=== PATIENT | male | born 1940 | race Caucasian/White ===

== ENCOUNTER 2018-10-31 01:08 | Inpatient (IN) | payer OTHER, MEDICARE ==
[~2018-10-31] VITALS: Ht 182.9 cm; Wt 71.4 kg
[~2018-10-31 01:08] MED LIST: APIX5TAB PO; ASPI-465; CARB1TAB34 PO; DONE10TA7 PO; FLEC100T PO; FLUD0.1T10 PO; LYRI25 PO
[2018-10-31 01:16] VITALS: Ht 182.9 cm; Wt 71.4 kg
[2018-10-31] MEDS ORDERED: SOD CHLORIDE 0.9% 1,000 ML IV STA (01:18)
[2018-10-31] MEDS ORDERED: ACETAMINOPHEN 325 MG TAB PO PRN ×2 (04:00→05:30)
[2018-10-31] MEDS ORDERED: ONDANSETRON 4 MG INJ IV PRN (04:00)
[2018-10-31 05:00] VITALS: BP 166/74; PULSE 72; RESP 18
[2018-10-31 07:46] VITALS: BP 171/79; PULSE 64; RESP 18
[2018-10-31] MEDS ORDERED: APIXABAN 5 MG TABLET PO SCH (09:00)
[2018-10-31] MEDS ORDERED: ENOXAPARIN 40 MG/0.4 ML SYG SC SCH (09:00)
[2018-10-31] MEDS: PREGABALIN 25 MG CAP PO SCH ×3 (09:00→21:01)
[2018-10-31] MEDS: DONEPEZIL 10 MG TAB PO SCH ×2 (09:26→21:01)
[2018-10-31] MEDS: FLUDROCORTISONE 0.1 MG TAB PO SCH (09:27)
[2018-10-31] MEDS: CARBIDOPA/LEVODOPA (25/100) TAB PO SCH ×4 (09:27→21:02)
[2018-10-31] MEDS: FLECAINIDE 100 MG TAB PO SCH ×2 (09:28→21:02)
[2018-10-31 13:19] VITALS: BP 140/70; PULSE 66; RESP 18
[2018-10-31] MEDS: HYDROCODONE/APAP (5/325) TAB PO PRN (19:41)
[2018-10-31 20:17] VITALS: BP 180/74; PULSE 62; RESP 20
[2018-10-31] MEDS: DEXTROSE 5%-0.45% NACL 1,000 ML IV SCH (21:01)
[2018-10-31] MEDS: APIXABAN 5 MG TABLET PO SCH (21:02)
[2018-11-01 02:09] VITALS: BP 153/67; PULSE 58; RESP 21
[2018-11-01 07:39] VITALS: BP 183/79; PULSE 50; RESP 17
[2018-11-01] MEDS: PREGABALIN 25 MG CAP PO SCH ×3 (07:51→21:08)
[2018-11-01] MEDS: CARBIDOPA/LEVODOPA (25/100) TAB PO SCH ×4 (07:51→21:09)
[2018-11-01] MEDS: HYDROCODONE/APAP (5/325) TAB PO PRN (07:51)
[2018-11-01] MEDS: APIXABAN 5 MG TABLET PO SCH ×2 (07:51→21:09)
[2018-11-01] MEDS: DONEPEZIL 10 MG TAB PO SCH ×2 (07:51→21:09)
[2018-11-01] MEDS: FLUDROCORTISONE 0.1 MG TAB PO SCH (07:52)
[2018-11-01 10:30] VITALS: BP 160/70; PULSE 55; RESP 18
[2018-11-01 13:00] VITALS: PULSE 57
[2018-11-01] MEDS: FLECAINIDE 100 MG TAB PO SCH ×2 (13:29→21:09)
[2018-11-01 15:08] VITALS: BP 143/63; PULSE 70; RESP 20
[2018-11-01] MEDS: DEXTROSE 5%-0.45% NACL 1,000 ML IV SCH (18:01)
[2018-11-01 20:19] VITALS: BP 143/64; PULSE 60; RESP 18
[2018-11-01] MEDS: NIFEdipine (XL) 30 MG TAB PO SCH (21:08)
[2018-11-02 02:03] VITALS: BP 115/54; PULSE 61; RESP 18
[2018-11-02 07:34] VITALS: BP 118/74; PULSE 66; RESP 19
[2018-11-02] MEDS: PREGABALIN 25 MG CAP PO SCH ×3 (09:15→22:40)
[2018-11-02] MEDS: NIFEdipine (XL) 30 MG TAB PO SCH ×2 (09:16→22:41)
[2018-11-02] MEDS: DONEPEZIL 10 MG TAB PO SCH ×2 (09:16→22:40)
[2018-11-02] MEDS: FLECAINIDE 100 MG TAB PO SCH ×2 (09:16→22:41)
[2018-11-02] MEDS: APIXABAN 5 MG TABLET PO SCH ×2 (09:16→22:40)
[2018-11-02] MEDS: CARBIDOPA/LEVODOPA (25/100) TAB PO SCH ×4 (09:16→22:41)
[2018-11-02] MEDS: FLUDROCORTISONE 0.1 MG TAB PO SCH (09:16)
[2018-11-02] MEDS: DEXTROSE 5%-0.45% NACL 1,000 ML IV SCH (13:35)
[2018-11-02 14:47] VITALS: BP 146/66; PULSE 62; RESP 19
[2018-11-02 20:00] VITALS: BP 156/69; PULSE 65; RESP 18
[2018-11-03 02:00] VITALS: BP 164/74; PULSE 70; RESP 16
[2018-11-03] MEDS: DEXTROSE 5%-0.45% NACL 1,000 ML IV SCH ×2 (06:30→10:17)
[2018-11-03 07:48] VITALS: BP 143/66; PULSE 69; RESP 17
[2018-11-03] MEDS: FLUDROCORTISONE 0.1 MG TAB PO SCH (09:08)
[2018-11-03] MEDS: CARBIDOPA/LEVODOPA (25/100) TAB PO SCH ×4 (09:08→21:17)
[2018-11-03] MEDS: NIFEdipine (XL) 30 MG TAB PO SCH ×2 (09:08→21:17)
[2018-11-03] MEDS: DONEPEZIL 10 MG TAB PO SCH ×2 (09:08→21:16)
[2018-11-03] MEDS: PREGABALIN 25 MG CAP PO SCH ×3 (09:08→21:16)
[2018-11-03] MEDS: FLECAINIDE 100 MG TAB PO SCH ×2 (09:08→21:17)
[2018-11-03] MEDS: APIXABAN 5 MG TABLET PO SCH ×2 (09:08→21:16)
[2018-11-03] MEDS: CEFTRIAXONE 1 GM/50 ML (PMX) 50 ML IVPB SCH (10:17)
[2018-11-03 15:39] VITALS: BP 129/63; PULSE 81; RESP 17
[2018-11-03 19:58] VITALS: BP 129/60; PULSE 71; RESP 14
[2018-11-04 02:00] VITALS: BP 140/65; PULSE 70; RESP 16
[2018-11-04] MEDS: DEXTROSE 5%-0.45% NACL 1,000 ML IV SCH (07:17)
[2018-11-04 07:45] VITALS: BP 171/77; PULSE 66; RESP 16
[2018-11-04] MEDS: CARBIDOPA/LEVODOPA (25/100) TAB PO SCH ×4 (08:39→21:59)
[2018-11-04] MEDS: FLUDROCORTISONE 0.1 MG TAB PO SCH (08:39)
[2018-11-04] MEDS: DONEPEZIL 10 MG TAB PO SCH ×2 (08:39→21:59)
[2018-11-04] MEDS: PREGABALIN 25 MG CAP PO SCH ×3 (08:40→21:59)
[2018-11-04] MEDS: APIXABAN 5 MG TABLET PO SCH ×2 (08:40→21:59)
[2018-11-04] MEDS: FLECAINIDE 100 MG TAB PO SCH ×2 (08:40→21:59)
[2018-11-04] MEDS: NIFEdipine (XL) 30 MG TAB PO SCH ×2 (08:40→21:59)
[2018-11-04] MEDS: CEFTRIAXONE 1 GM/50 ML (PMX) 50 ML IVPB SCH (11:30)
[2018-11-04 13:47] VITALS: BP 143/63; PULSE 71; RESP 16
[2018-11-04 19:20] VITALS: PULSE 72; RESP 16
[2018-11-04 20:05] VITALS: BP 161/88; RESP 17
[2018-11-04] MEDS: HYDROCODONE/APAP (5/325) TAB PO PRN (21:59)
[2018-11-05 01:29] VITALS: PULSE 63; RESP 17
[2018-11-05 01:41] VITALS: BP 158/78
[2018-11-05] MEDS: DEXTROSE 5%-0.45% NACL 1,000 ML IV SCH (05:09)
[2018-11-05 07:37] VITALS: BP 167/73; PULSE 71; RESP 18
[2018-11-05] MEDS: PREGABALIN 25 MG CAP PO SCH ×3 (09:38→21:45)
[2018-11-05] MEDS: FLUDROCORTISONE 0.1 MG TAB PO SCH (09:39)
[2018-11-05] MEDS: CARBIDOPA/LEVODOPA (25/100) TAB PO SCH ×4 (09:39→21:46)
[2018-11-05] MEDS: APIXABAN 5 MG TABLET PO SCH ×2 (09:39→21:45)
[2018-11-05] MEDS: DONEPEZIL 10 MG TAB PO SCH ×2 (09:39→21:46)
[2018-11-05] MEDS: FLECAINIDE 100 MG TAB PO SCH ×2 (09:39→21:45)
[2018-11-05] MEDS: CEFTRIAXONE 1 GM/50 ML (PMX) 50 ML IVPB SCH (09:41)
[2018-11-05] MEDS: NIFEdipine (XL) 30 MG TAB PO SCH ×2 (09:44→21:46)
[2018-11-05] MEDS ORDERED: POTASSIUM CHLORIDE 20 MEQ POWDER FOR ORAL SOLN PO ONE (13:30)
[2018-11-05] MEDS ORDERED: POTASSIUM CHLORIDE 20 MEQ POWDER FOR ORAL SOLN GTB ONE (13:30)
[2018-11-05 13:44] VITALS: BP 122/72; PULSE 79; RESP 20
[2018-11-05 21:07] VITALS: BP 173/75; PULSE 70; RESP 17
[2018-11-05] MEDS: METOPROLOL 25 MG TAB PO SCH (21:46)
[2018-11-06 02:07] VITALS: BP 139/74; PULSE 62; RESP 17
[2018-11-06 07:19] VITALS: BP 186/86; PULSE 58; RESP 18
[2018-11-06] MEDS: PREGABALIN 25 MG CAP PO SCH ×2 (08:27→13:17)
[2018-11-06] MEDS: FLUDROCORTISONE 0.1 MG TAB PO SCH (08:28)
[2018-11-06] MEDS: APIXABAN 5 MG TABLET PO SCH (08:28)
[2018-11-06] MEDS: METOPROLOL 25 MG TAB PO SCH (08:28)
[2018-11-06] MEDS: NIFEdipine (XL) 30 MG TAB PO SCH (08:29)
[2018-11-06] MEDS: CARBIDOPA/LEVODOPA (25/100) TAB PO SCH ×2 (08:29→13:17)
[2018-11-06] MEDS: DONEPEZIL 10 MG TAB PO SCH (08:29)
[2018-11-06] MEDS: FLECAINIDE 100 MG TAB PO SCH (08:33)
[2018-11-06] MEDS: CEFTRIAXONE 1 GM/50 ML (PMX) 50 ML IVPB SCH (10:49)
[2018-11-06 12:53] VITALS: BP 118/56; PULSE 61; RESP 18
[2018-11-06] MEDS ORDERED: NIFEdipine (XL) 60 MG TAB PO SCH (21:00)
[2018-11-07] MEDS ORDERED: NIFEdipine (XL) 30 MG TAB PO SCH (09:00)
== END 2018-11-06 13:45 | DRG 56 ==
LOC: E/R 01:08 → 2NE 03:34 → UNDOADMOB 03:34 → OBSVTOIN 11-01 09:22 → 2NE 11-01 19:47
PROVIDERS: ADMIT Internal Medicine; ATTEND Internal Medicine
DX: G31.83 Neurocognitive disorder with Lewy bodies (principal); L89.323 Pressure ulcer of left buttock, stage 3; D68.69 Other thrombophilia; I48.0 Paroxysmal atrial fibrillation; I45.10 Unspecified right bundle-branch block; F02.80 Dementia in other diseases classified elsewhere, unspecified severity, without behavioral disturbance, psychotic disturbance, mood disturbance, and anxiety; R00.1 Bradycardia, unspecified; I44.0 Atrioventricular block, first degree; I10 Essential (primary) hypertension; R53.1 Weakness; G89.29 Other chronic pain; Z79.02 Long term (current) use of antithrombotics/antiplatelets; Z87.891 Personal history of nicotine dependence
CPT/HCPCS: 36415; 70450; 71045; 80048; 80053; 80061; 81003; 83690; 84439; 84443; 84484; 85025; 87086; 93005; 93306; 97110; 97116; 97162; 97530; G0378; J0696; J7030; J7042